=== PATIENT | female | born 1960 | race Caucasian/White ===

== ENCOUNTER 2017-06-24 15:06 | Emergency (ER) | payer MEDICARE ==
[2017-06-24 16:24] LABS: BASOPHIL 0.3 % (0-2); HCT 40.7 % (37.0-47.0); HGB 13.9 g/dl (12.5-16.0); LYMPHOCYTE 20.5 % (15-48); MCH 27.3 pg (25.0-31.0); MCHC 34.2 g/dL (32.0-36.0); MCV 79.8 fL (78.0-100.0); MONOCYTE 5.4 % (0-12); MPV 9.5 fL (6.0-9.5); NEUTROPHIL 72.8 % (41-80); PLT 324 K/uL (150-400); RDW 13.4 % (11.5-14.0); WBC 9.2 K/uL (4.0-10.5)
[2017-06-24 16:38] LABS: BILIRUBIN - TOTAL 0.5 mg/dL (0.1-1.0); CREATININE 0.5 mg/dL (0.5-1.0); GLOBULIN (CALCULATION) 3.5 g/dL (2.2-4.2); POTASSIUM 4.3 mmol/L (3.5-5.1); TOTAL PROTEIN 7.5 g/dL (6.4-8.3)
== END 2017-06-24 18:55 | disposition home or self-care (01) ==
LOC: FER 15:06
PROVIDERS: Internal Medicine
DX: I10 Essential (primary) hypertension (principal); K21.9 Gastro-esophageal reflux disease without esophagitis; Z79.84 Long term (current) use of oral hypoglycemic drugs; Z79.899 Other long term (current) drug therapy
CPT/HCPCS: 36415; 36600; 71010; 80053; 82009; 82803; 84484; 85025; J2060

== ENCOUNTER 2022-06-11 12:54 | Emergency (ER) | payer MEDICARE, OTHER ==
[~2022-06-11 12:54] MED LIST: AUGMENTIN 875-1 EACH PO; BASAGLAR K100 UNIT/1 SC; FLEXERIL5 MG PO; NEURONTIN300 MG PO; ONDANSETRON ODT4 MG PO; PERCOCET 5-3251 EACH PO; SYNTHROID25 MCG PO; ULTRA-LIGHT RO1 EACH XX
[2022-06-11 14:06] LABS: BASOPHIL 0.5 % (0-2); HCT 43.3 % (37.0-47.0); HGB 15.1 g/dl (12.5-16.0); LYMPHOCYTE 22.3 % (15-48); MCH 29.2 pg (25.0-31.0); MCHC 34.9 g/dL (32.0-36.0); MCV 83.6 fL (78.0-100.0); MONOCYTE 5.8 % (0-12); MPV 9.2 fL (6.0-9.5); NEUTROPHIL 70.1 % (41-80); NRBC 0; PLT 328 K/uL (150-400); RBC 5.18 M/uL (4.20-5.40); RDW 12.9 % (11.5-14.0); WBC 9.1 K/uL (4.0-10.5)
[2022-06-11 14:07] LABS: BILIRUBIN NEGATIVE (NEGATIVE); BLOOD NEGATIVE Ery/uL (NEGATIVE); CLARITY CLEAR (CLEAR); COLOR YELLOW (YELLOW); GLUCOSE (U) 3+ mg/dL (NORMAL); LEUKOCYTES NEGATIVE Leu/uL (NEGATIVE); NITRITE NEGATIVE (NEGATIVE); PROTEIN NEGATIVE (NEGATIVE); SPECIFIC GRAVITY <=1.005 (1.001-1.030); UROBILINOGEN 0.2 mg/dL (0.2-1.0); pH 6.5 (5.0-9.0)
[2022-06-11 14:15] LABS: BACTERIA TRACE; URINARY RBC RARE
[2022-06-11 14:16] LABS: CREATININE 0.5 mg/dL (0.51-0.95); POTASSIUM 4.1 mmol/L (3.5-5.1)
[2022-06-11 14:16] LABS: SQUAMOUS EPITHELIAL CELLS RARE
[2022-06-11] MEDS ORDERED: ONDANSETRON ODT4 MG PO (17:00)
[2022-06-11] MEDS ORDERED: METFORMIN HCL500 MG PO (17:00)
== END 2022-06-11 17:15 | disposition home or self-care (01) ==
LOC: FER 12:54
PROVIDERS: Emergency Medicine
DX: E11.65 Type 2 diabetes mellitus with hyperglycemia (principal); R51.9 Headache, unspecified; Z88.8 Allergy status to other drugs, medicaments and biological substances; Z88.1 Allergy status to other antibiotic agents; Z91.018 Allergy to other foods; Z28.310 Unvaccinated for COVID-19
CPT/HCPCS: 36415; 80048; 81001; 85025; J7030